=== PATIENT | female | born 1985 | race Caucasian/White ===

== ENCOUNTER 2024-06-08 12:24 | Outpatient (CLI) | payer BC, SELFPAY | END 2024-06-08 12:25 | disposition home or self-care (01) | PROVIDERS: Visit Provider Registered Nurse | DX: R53.83 Other fatigue (principal); N92.0 Excessive and frequent menstruation with regular cycle; Z13.6 Encounter for screening for cardiovascular disorders; Z13.1 Encounter for screening for diabetes mellitus | CPT/HCPCS: 80061; 82306; 84443 ==

== ENCOUNTER 2024-08-11 15:05 | Outpatient (CLI) | payer BC, SELFPAY ==
--- NOTE | 2024-08-11 15:20 | CRLHL7_ITS ---
For Patients: As a result of the Century Cures Act, medical imaging exams and procedure reports are released immediately into your electronic medical record. You may view this report before your referring provider. If you have questions, please contact your health care provider. INDICATION: BILATERAL SCREENING MAMMOGRAM, ASYMPOTMATIC 39 Y/O FEMALE COMPARISON: , BASELINE EXAM TODAY TECHNIQUE: CC and MLO views were obtained. These mammographic images have been obtained using full-field digital technique. These mammographic images were interpreted with the benefit of computer aided detection and tomosynthesis. BREAST COMPOSITION: There are scattered areas of fibroglandular density. FINDINGS: No suspicious findings. ASSESSMENT: BI-RADS 1 Negative RECOMMENDATION: Annual screening mammogram. A lay language report of this examination will be provided to the patient. Dictated by: Curt Wharton MD @ 08/19/2024 12:54:44 (Electronically Signed)
== END 2024-08-11 15:06 | disposition home or self-care (01) ==
LOC: MAMMO 15:06
PROVIDERS: Visit Provider Physician Assistant
DX: Z12.31 Encounter for screening mammogram for malignant neoplasm of breast (principal)
CPT/HCPCS: 77063; 77067